=== PATIENT | female | born 2000 | race Caucasian/White ===

== ENCOUNTER 2022-08-13 19:04 | Emergency (ER) | payer OTHER, SELFPAY ==
--- NOTE | 2022-08-13 | ECG_ITS ---
Test Reason : CHEST PAIN Blood Pressure : / mmHG Vent. Rate : 078 BPM Atrial Rate : 078 BPM P-R Int : 154 ms QRS Dur : 082 ms QT Int : 378 ms P-R-T Axes : 059 025 028 degrees QTc Int : 430 ms Normal sinus rhythm Normal ECG When compared with ECG of 16-MAR-2018 21:38, No significant change was found Referred By: Generic ED Physician Electronically Signed By:ROSALINA HORN
--- NOTE | ~2022-08-13 | XR_ITS ---
EXAMINATION: XR CHEST CLINICAL INFORMATION: Chest pain COMPARISON: Chest x-ray 02/10/2020 TECHNIQUE: Frontal view of the chest was obtained. FINDINGS: Cardiac silhouette is normal in size. The lungs are adequately aerated. There is no lobar consolidation. No pleural effusion or pneumothorax. XR/XR chest 1V IMPRESSION: Stable examination demonstrating no acute pulmonary pathology.
[2022-08-13 19:47] LABS: Anion Gap 16 (12-20); Blood Urea Nitrogen 9 mg/dL (9-16); Calcium 9.2 mg/dL (8.4-10.2); Carbon Dioxide 24 mmol/L (22-29); Chloride 104 mmol/L (96-108); Estimated Glomerular Filt Rate > 60; Glucose Random 106 mg/dL (60-115); Sodium 140 mmol/L (135-145)
[2022-08-13 19:55] LABS: Troponin-I High Sensitivity < 3.5 ng/L (<3.5-17.0)
[2022-08-13 20:00] LABS: Basophils Percent Auto 0.3 % (0-2); Eosinophils Absolute Auto 0.4 X10*3/uL (0.0-0.4); Eosinophils Percent Auto 3.4 % (0-4); Hematocrit 42.5 % (37.0-47.0); Hemoglobin 13.5 g/dl (12.0-16.0); Imm Gran Abs Auto 0.04 X10*3/uL (0.00-0.03); Imm Gran Pct Auto 0.3 % (0.0-0.4); Lymphocytes Absolute Auto 3.1 X10*3/uL (1.2-4.9); Lymphocytes Percent Auto 25.3 % (20-40); Mean Corpuscular HGB Conc 31.8 g/dl (31.0-35.0); Mean Corpuscular Hemoglobin 27.5 pg (27.0-33.0); Mean Corpuscular Volume 86.6 fL (80.0-98.0); Mean Platelet Volume 10.9 fL (9.4-12.3); Monocytes Absolute Auto 0.8 X10*3/uL (0.1-1.2); Monocytes Percent Auto 6.2 % (2-11); Neutrophils Absolute Auto 7.9 x10*3/uL (2.0-8.3); Neutrophils Percent Auto 64.5 % (45-73); Platelet Count 297 X10*3/uL (160-400); Red Blood Count 4.91 X10*6/uL (4.20-5.50); Red Cell Distribution Width 13.8 % (11.0-16.0); White Blood Count 12.2 X10*3/uL (4.8-10.8)
[2022-08-13 20:02] LABS: MANUAL DIFF FLAG NO
[2022-08-13 20:53] VITALS: BP 152/86; PULSE 68; RESP 20; TEMP 36; O2SAT 98; BMI 60.5
[2022-08-13] MEDS: Aspirin 81 MG TAB.CHEW 324 MG PO (20:59)
== END 2022-08-14 00:06 | disposition left against medical advice (07) ==
PROVIDERS: Emergency Provider Emergency Medicine
DX: R07.9 Chest pain, unspecified (principal)
CPT/HCPCS: 36415; 71045; 80048; 84484; 85025; 93005; 99283; 99284

== ENCOUNTER 2022-09-23 17:10 | Emergency (ER) | payer OTHER, SELFPAY ==
--- NOTE | ~2022-09-23 | XR_ITS ---
EXAMINATION: XR CHEST CLINICAL INFORMATION: Cough and wheezing COMPARISON: 08/13/2022 TECHNIQUE: Frontal view of the chest was obtained. FINDINGS: No significant abnormality is noted involving the heart, lungs, mediastinum, bony thorax or soft tissues. XR/XR chest 1V IMPRESSION: Unremarkable examination.
[2022-09-23 18:02] VITALS: BP 134/77; PULSE 101; RESP 22; TEMP 36.7; O2SAT 95; BMI 59.4
--- NOTE | 2022-09-23 18:46 | ED_ITS ---
HPI - Asthma General Chief Complaint: Upper Respiratory Symptoms Stated Complaint: sob asthma Time Seen by Provider: 09/23/22 18:39 Source: patient Mode of arrival: ambulatory Limitations: no limitations History of Present Illness HPI Narrative: 22-year-old female with history of morbid obesity, mild intermittent asthma who presents to the ER for evaluation of shortness of breath, productive cough and chest congestion that started 3 days ago. She reports over the weekend she has continued to get worse. She states at night when she lays down she has a hard time breathing, is very wheezy and is starting to bring up white yellow phlegm. She states she has hot flashes and sweats and then gets cold and has chills. She thinks she may have gotten sick at work, she works in fast food. She denies any abdominal pain, nausea, vomiting, diarrhea. No chest pain. Her asthma is usually precipitated by illnesses and exertion. She has no albuterol at home. She has never been hospitalized for asthma. MD complaint: shortness of breath and wheezing Onset (ago): day(s) (3) Severity: worse than usual Context: recent URI and ran out of meds Associated symptoms: productive cough and fever Related Data Current Asthma Therapy: none Previous Rx's Medication Instructions Recorded albuterol sulfate 90 mcg/actuation 1 inh inhalation QID PRN shortness 09/23/22 aerosol inhaler of breath or wheezing #6.7 grams azithromycin 250 mg tablet See Rx Instructions PO .COMPLEX #6 09/23/22 (Zithromax Z-Jonathan) tabs benzonatate 100 mg capsule 100 mg PO TID PRN cough #20 caps 09/23/22 prednisone 20 mg tablet 40 mg PO DAILY #10 tabs 09/23/22 Allergies Allergy/AdvReac Type Severity Reaction Status Date / Time No Known Allergies Allergy Verified 08/13/22 20:57 Review of Systems Review of Systems: Constitutional: + Fever, + Chills ENT/Mouth: No sore throat, + Rhinorrhea, No Swallowing Difficulty Eyes: No Eye Pain, No Swelling, No Redness Cardiovascular: No Chest Pain, No SOB, + Orthopnea, No Edema Respiratory: + Cough, + Sputum, +Wheezing, + dyspnea Gastrointestinal: No Nausea, No Vomiting, No Diarrhea, No abdominal Pain Musculoskeletal: No joint pain, +Myalgias Skin: No Skin Lesions, No rash Neuro: No Weakness, No Dizziness, No Headache Psych: No Anxiety/Panic, No Depression Heme/Lymph: No Bruising, No Lymphadenopathy PMFSH Social History Social History Advance Directives: No Physical Exam Vital Signs: Vital Signs: Last Vital Signs Temp 97.2 F 09/23/22 18:54 Pulse 79 09/23/22 19:19 Resp 18 09/23/22 19:19 BP 153/83 H 09/23/22 18:54 Pulse Ox 95 09/23/22 18:54 O2 Del Method 09/23/22 18:54 BMI result Body Mass Index 59.4 Appearance: Alert. Oriented X3. Diaphoretic, no respiratory distress. Eyes: Pupils equal, round and reactive to light. ENT: Pharynx normal. Neck: Normal inspection. Neck supple. CVS: Tachycardic low in 100s, regular rhythm. Pulses normal. Respiratory: No respiratory distress. Breath sounds with end-expiratory wheezes in the right middle and lower lobes. Abdomen: Obese, Soft and nontender. +BS x4 Skin: Skin warm and dry. Normal skin color. Normal skin turgor. No rashes. Extremities: No lower extremity edema. No calf tenderness. Neuro: Oriented X 3. Steady gait, nonfocal. Course Course Course Narrative: 22-year-old female with history of mild intermittent asthma not on any medicat ions, history of morbid obesity who is presenting to the ER for evaluation of wheezing, shortness of breath, congestion and cough that started 3 days ago. She also has had subjective fever and chills. She arrives diaphoretic but not in any distress. She is mildly tachycardic and tachypneic in triage. She has expiratory wheezes in the right lung. Will treat with the nebulizer treatment. Will get x-ray to rule out pneumonia. Will check COVID swab and flu swab. Most likely viral etiology triggering asthma exacerbation. Reevaluation(s) Reevaluation #1: Chest x-ray is clear. COVID and influenza are negative. Her aeration is improved. Will discharge home with treatment for bronchitis. Stable for discharge. Work note provided per request. Patient agrees with plan, all questions were answered. MDM - Asthma Lab Data Labs: Lab Results 09/23/22 09/23/22 Range/Units 19:01 19:01 COVID-19 (MARLY) Negative (Negative) COVID-19 Clin Com See Note Influenza Type A (JULIO) Negative (Negative) Influenza Type B (JULIO) Negative (Negative) Influenza A & B Note See Note Critical Care Time Critical Care Time Critical Care Time: No Discharge Plan Discharge Clinical Impression: Asthma, Bronchitis Patient Disposition: Home, Self-Care Instructions: Asthma (ED), Acute Bronchitis (ED) Additional Instructions: Your x-ray today was normal, no evidence of pneumonia. You tested negative for COVID-19 and influenza. Take the prescribed steroids as directed. Take the prescribed antibiotic as directed. This will help decrease the inflammation in your lungs. Take the prescribed cough medication as needed. Take paym-goa-wzbzlyu cold and flu medications as needed for symptoms If you develop new or worsening symptoms call 911 or come back to the ER for further evaluation. Prescriptions: New albuterol sulfate 90 mcg/actuation HFA aerosol inhaler 1 inh inhalation QID PRN (Reason: shortness of breath or wheezing) Qty: 6.7 0RF prednisone 20 mg tablet 40 mg PO DAILY Qty: 10 0RF azithromycin [Zithromax Z-Jonathan] 250 mg tablet See Rx Instructions .ROUTE .COMPLEX Qty: 6 0RF Rx Instructions: take 500 mg today (day 1), then 250 mg for 4 days (days 2-5) benzonatate 100 mg capsule 100 mg PO TID PRN (Reason: cough) Qty: 20 0RF Stand Alone Forms: Work/School Release
[2022-09-23 18:54] VITALS: BP 153/83; PULSE 91; RESP 18; TEMP 36.2; O2SAT 95
--- OUTSIDE RECORDS SUMMARY | 2022-09-23 19:14 | XMS_ITS | Continuity of Care Document ---
:2000 Author Organization [facility] Address Unavailable , Care Team Providers Name Role Phone Not on Staff, PCP Primary Care Physician Unavailable Encounter [facility] Date(s): 11/13/21 - 12/13/21 [facility] Attending Physician: Girma Britton Admitting Physician: Girma Britton Referring Physician: Girma Britton Allergies, Adverse Reactions, Alerts No Known Allergies Immunizations Given and Recorded Vaccine Date Status Refusal Reason Measles/Mumps/Rubella Virus Vaccine1 06/15/02 Given Measles/Mumps/Rubella Virus Vaccine2 09/24/01 Given Poliovirus Vaccine, Inactivated3 06/15/02 Given Poliovirus Vaccine, Inactivated4 98 Given Poliovirus Vaccine, Inactivated5 98 Given Poliovirus Vaccine, Inactivated6 98 Given Diphth/Pertussis, Whl Cell/Tet(oldterm)7 06/15/02 Given Diphth/Pertussis, Whl Cell/Tet(oldterm)8 09/21/01 Given Diphth/Pertussis, Whl Cell/Tet(oldterm)9 98 Given Diphth/Pertussis, Whl Cell/Tet(oldterm)10 98 Given Diphth/Pertussis, Whl Cell/Tet(oldterm)11 98 Given Pneumococcal Conjugate (PCV7) (oldterm)12 10/26/01 Given Haemophilus B Conj Vaccine (oldterm)13 10/26/01 Given Haemophilus B Conj Vaccine (oldterm)14 98 Given Haemophilus B Conj Vaccine (oldterm)15 98 Given Haemophilus B Conj Vaccine (oldterm)16 98 Given Varicella Virus Ohdhnay45 09/24/01 Given Hepatitis B Vaccine (old term)18 98 Given Hepatitis B Vaccine (old term)19 98 Given Hepatitis B Vaccine (old term)20 98 Given 1Admin Note: SSW8Uzsdn Note: CZY4Sysji Note: IPV/XBX7Rowjq Note: IPV/DNG5Ijxkf Note: IPV/MGB4Byrqv Note: IPV/XHT9Szwsi Note: PWB4Hqqnf Note: AXL7Kgpcs Note: YYK06Cnmyq Note: NZS74Ubyve Note: YVN84Zvlpu Note: SFV299Nqzde Note: NNL64Sualt Note: OQV26Ytvby Note: YJR29Zyoro Note: FDJ51Ggvfn Note: DDJ06Nwvaq Note: HEP B 19Admin Note: HEP C04Nthhz Note: HEP B Medications Advair Diskus 250 mcg-50 mcg inhalation powder 1, puffs, Inhalation, Every 12 hours, 60, each, 3, 3, 08/18/07 11:59:41, Print JUSTO Number, [id number], Constant Indicator Start Date: 08/18/07 Stop Date: 12/16/07 Status: Orderedaerochamber aerochamber, See Instructions, # 1 each, Use with albuterol as directed., 06/12/09 12:53:36 Start Date: 06/12/09 Status: Orderedalbuterol 90 mcg/inh inhalation aerosol with adapter 2 puffs, Inhalation, Every 4 hours, PRN Wheezing/Shortness of Breath, # 1 each, 0 Refills Start Date: 06/12/09 Stop Date: 07/12/09 Status: Orderedamoxicillin 875 mg oral tablet 1 tablet = 875 mg, By Mouth, 2 times a day, # 8 tablet, 0 Refills Start Date: 06/12/09 Stop Date: 06/16/09 Status: Orderedamoxicillin 875 mg oral tablet 875, mg, 1, tablet, By Mouth, 2 times a day, 14, tablet, 0, 0, 08/19/07 13:14:20, Print JUSTO Number, [id number], Constant Indicator Start Date: 08/19/07 Stop Date: 08/26/07 Status: OrderedFlovent HFA 110 mcg/inh inhalation aerosol with adapter 2 puffs, Inhalation, 2 times a day, # 12 Gm, 0 Refills Start Date: 06/12/09 Stop Date: 07/12/09 Status: OrderedPrilosec 20 mg oral enteric coated capsule 1 capsule = 20 mg, By Mouth, Daily, # 30 capsule, 0 Refills Start Date: 06/12/09 Status: Ordered
--- OUTSIDE RECORDS SUMMARY | 2022-09-23 19:14 | XMS_ITS | Continuity of Care Document ---
:2000 Author Organization [facility] Address Unavailable , Care Team Providers Name Role Phone Not on Staff, PCP Primary Care Physician Unavailable Encounter [facility] Date(s): 08/28/21 - 12/13/21 [facility] Attending Physician: Michelle Bruno MD Allergies, Adverse Reactions, Alerts No Known Allergies [...] Conj Vaccine (oldterm)16 98 Given Varicella Virus Wtsmagy63 09/24/01 Given Hepatitis B Vaccine (old term)18 98 Given Hepatitis B Vaccine (old term)19 98 Given Hepatitis B Vaccine (old term)20 98 Given 1Admin Note: GDA0Zujkc Note: THX0Zhfeu Note: IPV/FDH3Nccdv Note: IPV/YAJ7Odcxv Note: IPV/IJP2Lzklq Note: IPV/IQE6Iywzc Note: LOK3Lzbss Note: HIU5Kebzv Note: PBG31Bkyok Note: LPS15Tqpnk Note: YCU47Itflc Note: YYZ240Uubbb Note: UPT38Yjivc Note: TIB64Miuca Note: PTB61Zulyj Note: JHE71Ioqmq Note: BJK53Qtwnv Note: HEP B 19Admin Note: HEP V44Wlhpu Note: HEP B Medications Advair Diskus 250 [...] 0, 0, 08/19/07 13:14:20, Print JUSTO Number, [id number], Constant Indicator Start Date: 08/19/07 Stop Date: [...]
[2022-09-23 19:19] VITALS: PULSE 79; RESP 18; O2SAT 97
[2022-09-23] MEDS: Albuterol Sulfate 2.5 MG, Albuterol Sulfate (0.083%) 2.5 MG 5 MG INHALE (19:21)
[2022-09-23 19:24] LABS: COVID-19 Test Negative (Negative); IDNOW Serial# 16C4AD1C
[2022-09-23 19:26] LABS: Influenza A Negative (Negative); Influenza B2 Negative (Negative)
[2022-09-23] MEDS: Albuterol Sulfate 90 MCG 8 GM INHALER 2 PUFF INHALE (19:52)
== END 2022-09-23 20:04 | disposition home or self-care (01) ==
PROVIDERS: Physician Assistant; Emergency Provider Internal Medicine
DX: J45.909 Unspecified asthma, uncomplicated (principal); R00.0 Tachycardia, unspecified; Z20.822 Contact with and (suspected) exposure to COVID-19; E66.01 Morbid (severe) obesity due to excess calories; Z68.43 Body mass index [BMI] 50.0-59.9, adult
CPT/HCPCS: 71045; 87502; 87635; 94640; 99283; 99284

== ENCOUNTER 2022-11-16 18:53 | Emergency (ER) | payer OTHER, SELFPAY ==
--- NOTE | ~2022-11-16 | XR_ITS ---
EXAMINATION: CHEST 2 VIEWS CLINICAL INFORMATION: cough/sob . COMPARISON: 09/23/2022. TECHNIQUE: PA and lateral views of the chest obtained. FINDINGS: The lungs are well expanded. No focal infiltrate, effusion, edema, or pneumothorax. Cardiac and mediastinal silhouettes are within normal limits for technique. No acute bony abnormality seen XR/XR chest 2V IMPRESSION: No evidence of acute disease compared to 09/23/2022
[2022-11-16 18:58] VITALS: BP 153/91; PULSE 105; RESP 20; TEMP 36.8; O2SAT 95; BMI 54.0
--- NOTE | 2022-11-16 18:58 | ED_ITS ---
HPI - Asthma General Chief Complaint: Upper Respiratory Symptoms <BEV Boland - Last Filed: 11/16/22 19:01> Stated Complaint: diff breathing, asthmatic <BEV Boland - Last Filed: 11/16/22 19:01> Time Seen by Provider: 11/16/22 19:24 <BEV Boland - Last Filed: 11/16/22 19:01> Source: patient <BEV Archer - Last Filed: 11/16/22 22:01> Mode of arrival: ambulatory <BEV Archer - Last Filed: 11/16/22 22:01> Limitations: no limitations <BEV Archer - Last Filed: 11/16/22 22:> History of Present Illness HPI Narrative: Patient is a 22 year old assigned female at with no reported medical history presenting to the emergency department today with body aches, vomiting, and intermittent shortness of breath. Patient states that over the last 3 days she has felt generally unwell with shortness of breath, body aches, and vomiting. Patient denies any dizziness, lightheadedness, abdominal pain, fever, chills, blurry vision, double vision, loss of vision, chest pain, back pain, night sweats, pain with urination, increased urinary frequency, increased urinary urgency, blood in her urine or stool, syncope or a near syncopal episode, recent trauma or falls, bowel incontinence, bladder incontinence, bowel retention, bladder retention, or any other complaints at this time. <BEV Archer - Last Filed: 11/16/22 22:01> Onset (ago): day(s) (3) <BEV Archer - Last Filed: 11/16/22 22:01> Severity: mild <BEV Archer - Last Filed: 11/16/22 22:01> Related Data Home Medications: Previous Rx's Medication Instructions Recorded albuterol sulfate 90 mcg/actuation 1 inh inhalation QID PRN shortness 09/23/22 aerosol inhaler of breath or wheezing #6.7 grams azithromycin 250 mg tablet See Rx Instructions PO .COMPLEX #6 09/23/22 (Zithromax Z-Jonathan) tabs benzonatate 100 mg capsule 100 mg PO TID PRN cough #20 caps 09/23/22 prednisone 20 mg tablet 40 mg PO DAILY #10 tabs 09/23/22 ondansetron 4 mg disintegrating 4 mg PO Q8H 3 days #9 tabs 11/16/22 tablet <BEV Boland Last Filed: 11/16/22 19:01> Allergies/Adverse Reactions: Allergies Allergy/AdvReac Type Severity Reaction Status Date / Time No Known Allergies Allergy Verified 08/13/22 20:57 <BVE Boland Last Filed: 11/16/22 19:01> Review of Systems Constitutional: Constitutional: Reports no additional constitutional complaints, Reports body ache(s), Denies chills, Denies fever(s) and Denies night sweats <BEV Archer Last Filed: 11/16/22 22:01> Eyes: Eyes: Reports no additional eye complaints, Denies blurry vision, Denies change in vision, Denies diplopia, Denies eye discharge, Denies loss of vision and Denies eye pain <BEV Archer Last Filed: 11/16/22 22:01> ENT: Denies dizziness <BEV Archer Last Filed: 11/16/22 22:01> Cardiovascular: Cardiovascular: Reports no additional cardiovascular complaints, Denies chest pain, Denies lightheadedness, Denies Loss of Consciousness and Reports dyspnea (intermittent) <BEV Archer Last Filed: 11/16/22 22:01> Respiratory: Respiratory: Reports no additional respiratory complaints and Reports dyspnea (intermittent) <BEV Archer Last Filed: 11/16/22 22:01> Gastrointestinal: Gastrointestinal: Reports no additional gastrointestinal complaints, Denies abdominal pain, Denies melena, Denies hematochezia, Denies change in bowel habits, Denies change in stool character, Reports nausea and Reports vomiting <BEV Archer Last Filed: 11/16/22 22:01> Genitourinary: Genitourinary: Denies hematuria, Denies urinary frequency, Denies dysuria, Denies urinary incontinence, Denies urinary hesitancy and Denies urinary urgency <BEV Archer Last Filed: 11/16/22 22:01> Musculoskeletal: Musculoskeletal: Reports no additional musculoskeletal complaints, Denies numbness and Denies tingling <BEV Archer - Last Filed: 11/16/22 22:01> Neurologic: Denies dizziness, Denies loss of vision, Denies numbness and Denies tingling <BEV Archer - Last Filed: 11/16/22 22:01> Psychiatric: Psychiatric: Reports no additional psychiatric complaints <BEV Archer - Last Filed: 11/16/22 22:01> Endocrine: Endocrine: Reports no additional endocrine complaints <BEV Archer - Last Filed: 11/16/22 22:01> Hematologic/Lymphatic: Hematologic/Lymphatic: Reports no additional hematologic/lymphatic complaints <BEV Archer - Last Filed: 11/16/22 22:01> Allergic/Immunologic: Allergic/Immunologic: Reports no additional allergic/immunologic complaints <BEV Archer - Last Filed: 11/16/22 22:01> PMFSH Past Medical History Attestation statement: The following information was validated with the patient. <BEV Archer - Last Filed: 11/16/22 22:01> Source: old records reviewed and nursing notes reviewed <BEV Archer Wa st Filed: 11/16/22 22:01> Social History Social History: Social History Advance Directives: No Advance Directives Information Provided: No <BEV Boland - Last Filed: 11/16/22 19:01> Physical Exam Vital Signs: Vital Signs: Last Vital Signs Temp 98.2 F 11/16/22 18:58 Pulse 105 H 11/16/22 18:58 Resp 20 11/16/22 18:58 BP 153/91 H 11/16/22 18:58 Pulse Ox 95 11/16/22 18:58 O2 Del Method 11/16/22 18:58 BMI result Body Mass Index 54.0 <BEV Boland - Last Filed: 11/16/22 19:01> Vital Signs: Last Vital Signs Temp 98.2 F 11/16/22 18:58 Pulse 105 H 11/16/22 18:58 Resp 20 11/16/22 18:58 BP 153/91 H 11/16/22 18:58 Pulse Ox 95 11/16/22 18:58 O2 Del Method 11/16/22 18:58 BMI result Body Mass Index 54.0 <BEV Archer - Last Filed: 11/16/22 22:01> Const: General: cooperative, no acute distress, alert and awake <BEV Archer - Last Filed: 11/16/22 22:01> Nutritional Appearance: well nourished <BEV Archer - Last Filed: 11/16/22 22:> Orientation/consciousness: patient oriented x3 <BEV Archer - Last Filed: 11/16/22 22:01> Limitations: no limitations <BEV Archer - Last Filed: 11/16/22 22:> HEENT: Head: Yes normal to inspection and Yes atraumatic <BEV Archer - Last Filed: 11/16/22 22:01> Ears: hearing grossly normal bilaterally and external ears normal <BEV Archer - Last Filed: 11/16/22 22:01> General nose exam: Normal external nose present, no nasal discharge noted and no epistaxis <Gloria Lozano PA - Last Filed: 11/16/22 22:01> Face and sinus: Yes normal facial exam, No abrasion and No laceration <BEV Archer - Last Filed: 11/16/22 22:01> Mouth: Normal oral and palatal mucosa present, no drooling and no muffled voice <BEV Archer - Last Filed: 11/16/22 22:01> Eyes: General: appearance normal, both eyes and all related structures <BEV Archer - Last Filed: 11/16/22 22:01> Periorbital: periorbital findings normal <BEV Archer - Last Filed: 11/16/22 22:01> Eyelids: Yes eyelids normal <BEV Archer - Last Filed: 11/16/22 22:01> Conjunctivae: conjunctivae normal <BEV Archer - Last Filed: 11/16/22 22:01> Pupils: Equal, round and reactive pupils present <BEV Archer - Last Filed: 11/16/22 22:01> EOM: EOMs intact bilaterally <Gloria Lozano PA - Last Filed: 11/16/22 22:> Neck: Neck: Yes normal visual inspection, Yes full ROM and Yes no lymphadenopathy <Gloria Lozano PA - Last Filed: 11/16/22 22:01> Chest: Chest palpation & inspection: normal inspection of the chest <Gloria Lozano PA - Last Filed: 11/16/22 22:> Resp: Effort & Inspection: normal respiratory effort and able to speak in complete sentences <Gloria Lozano PA - Last Filed: 11/16/22 22:> Auscultation: clear to auscultation bilaterally <Gloria Lozano PA - Last Filed: 11/16/22 22:> Cardio: Rate: tachycardic <Gloria Lozano PA - Last Filed: 11/16/22 22:> Rhythm: regular rhythm <Gloria Lozano PA - Last Filed: 11/16/22 22:> GI: Inspection: Yes normal to inspection <Gloria Lozano PA - Last Filed: 11/16/22 22:> Palpation (GI): Soft to palpation, not firm, nontender, no guarding and not rigid <Gloria Lozano PA - Last Filed: 11/16/22 22:01> Neuro: General: patient oriented x3 and moves all extremities <Gloria Lozano PA - Last Filed: 11/16/22 22:> Cranial nerves: Yes Equal, round and reactive pupils present <Gloria Dagoberto delgadillo PA - Last Filed: 11/16/22 22:> Cognition (Neuro): normal cognition <Gloria Lozano PA - Last Filed: 11/16/22 22:> Motor exam (neuro): 5/5 motor strength present throughout <Gloria Lozano PA - Last Filed: 11/16/22 22:01> Sensory Exam: Normal double simultaneous stimulation for sensation <Gloria Howechris PA - Last Filed: 11/16/22 22:> Coordination: [id number] test normal <Gloria Howechris PA - Last Filed: 11/16/22 22:01> Extrem: General: Yes normal to inspection, Yes full ROM and Yes capillary refill normal <BEV Archer - Last Filed: 11/16/22 22:01> Psych: Appearance: grossly normal <BEV Archer - Last Filed: 11/16/22 22:01> Mental Status: mental status grossly normal <BEV Archer - Last Filed: 11/16/22 22:01> Affect: normal affect <BEV Archer - Last Filed: 11/16/22 22:01> Attitude: cooperative <BEV Archer - Last Filed: 11/16/22 22:01> Thought process: Normal thought process present <BEV Archer - Last Filed: 11/16/22 22:01> Thought content: Normal thought content present <BEV Archer Last Filed: 11/16/22 22:> Insight: Good insight present (Psych) <BEV Archer - Last Filed: 11/16/22 22:01> Course Course Course Narrative: RME-19PM - 22yoF c PMHx of asthma 2 days of generalized fatigue/malaise/chills/objective fevers with a cough/sputum production with green-colored sputum production along with sob/wheezing with nausea. Denies recent travel or sick contacts. Patient denies any neck pain/stiffness, trouble swallowing, chest pain, abdominal pain, diarrhea, lower extremity edema or calf tenderness or any other symptoms complaints or concerns at this time. Plan: COVID/RSV/flu swab, rapid strep and chest x-ray ordered at this time. <BEV Hanson - Last Filed: 11/16/22 19:01> Medications Administered Discontinued Medications Generic Name Dose Route Start Last Admin Trade Name Freq PRN Reason Stop Dose Admin Ondansetron HCl 4 mg 11/16/22 21:08 11/16/22 21:29 Ondansetron Odt 4 Mg Tab.Rapdis TRANSLINGU 11/16/22 21:09 4 mg ONCE ONE Administration <BEV Boland - Last Filed: 11/16/22 19:01> Medications Administered Discontinued Medications Generic Name Dose Route Start Last Admin Trade Name Freq PRN Reason Stop Dose Admin Ondansetron HCl 4 mg 11/16/22 21:08 11/16/22 21:29 Ondansetron Odt 4 Mg Tab.Rapdis TRANSLINGU 11/16/22 21:09 4 mg ONCE ONE Administration <BEV Archer - Last Filed: 11/16/22 22:01> Medical Decision Making Medical Decision Making [facility] Narrative: Patient is a 22 year old assigned female at with no reported medical history presenting to the emergency department today with intermittent shortness of breath, body aches, and vomiting. Patient's physical exam showed mild tachycardia but was otherwise unremarkable. Patient's influenza/RSV/COVID-19, and strep swabs were negative. Patient's chest x-ray showed no acute process. Patient's clinical presentation is most consistent with an enteritis. I explained my physical exam findings as well as all test results to the patient. I answered all questions asked by the patient. Patient received Zofran which she stated helped her symptoms significantly. I stressed the importance of the patient taking her medication as prescribed. I stressed the importance of the patient following up with her primary care provider. I stressed the importance of the patient returning to the emergency department immediately if her symptoms were to worsen or if she were to develop any dizziness, shortness of breath, difficulty breathing, chest pain, blurry vision, loss of vision, nausea, vomiting, abdominal pain, fever, chills, back pain, or any other complaints. Patient verbalized agreement and understanding with this treatment plan and discharge. <BEV Archer - Last Filed: 11/16/22 22:01> Differential Diagnosis Differential Diagnoses: The differential diagnosis associated with the presentation includes <BEV Archer - Last Filed: 11/16/22 22:01> URI, viral illness, enteritis <BEV Archer - Last Filed: 11/16/22 22:01> Lab Data [facility] Lab Attestation statement: I reviewed the patient's lab results. <BEV Archer - Last Filed: 11/16/22 22:01> Labs: Lab Results 11/16/22 11/16/22 Range/Units 19:43 19:43 Influenza Type A (PCR) NEGATIVE (Negative) Influenza Type B (PCR) NEGATIVE (Negative) RSV RNA Qual (PCR) NEGATIVE (Negative) SARS-CoV-2 RNA (RT-PCR) NEGATIVE (Negative) S. pyogenes GrpA JULIO Negative (Negative) <BEV Boland - Last Filed: 11/16/22 19:01> Lab Results 11/16/22 11/16/22 Range/Units 19:43 19:43 Influenza Type A (PCR) NEGATIVE (Negative) Influenza Type B (PCR) NEGATIVE (Negative) RSV RNA Qual (PCR) NEGATIVE (Negative) SARS-CoV-2 RNA (RT-PCR) NEGATIVE (Negative) S. pyogenes GrpA JULIO Negative (Negative) <BEV Archer - Last Filed: 11/16/22 22:01> Radiology Impression Discussion of test interpretation with radiology: I have reviewed the radiologist's reading. <BEV Archer - Last Filed: 11/16/22 22:01> Radiologist Impression: EXAMINATION: CHEST 2 VIEWS CLINICAL INFORMATION: cough/sob COMPARISON: 09/23/2022. TECHNIQUE: PA and lateral views of the chest obtained.? FINDINGS: The lungs are well expanded. No focal infiltrate, effusion, edema, or pneumothorax. Cardiac and mediastinal silhouettes are within normal limits for technique. No acute bony abnormality seen XR/XR chest 2V IMPRESSION: No evidence of acute disease compared to 09/23/2022 Dictated By: Andrade Ramsey MD Signed By: Electronically signed by Andrade Ramsey MD 11/16/222006 <BEV Archer - Last Filed: 11/16/22 22:01> Discharge Plan Discharge Clinical Impression: Nausea & vomiting <BEV Boland - Last Filed: 11/16/22 19:01> Patient Disposition: Home, Self-Care <BEV Boland - Last Filed: 11/16/22 19:01> Instructions: Acute Nausea and Vomiting (ED) <BEV Boland - Last Filed: 11/16/22 19:01> Additional Instructions: Follow up with your primary care provider. Return to the emergency department immediately if your symptoms worsen or if you develop any dizziness, shortness of breath, difficulty breathing, chest pain, blurry vision, loss of vision, nausea, vomiting, abdominal pain, fever, chills, back pain, or any other complaints. <BEV Boland - Last Filed: 11/16/22 19:01> Prescriptions: New ondansetron 4 mg tablet,disintegrating 4 mg PO Q8H 3 Days Qty: 9 0RF No Action albuterol sulfate 90 mcg/actuation HFA aerosol inhaler 1 inh inhalation QID PRN (Reason: shortness of breath or wheezing) Qty: 6.7 0RF prednisone 20 mg tablet 40 mg PO DAILY Qty: 10 0RF azithromycin [Zithromax Z-Jonathan] 250 mg tablet See Rx Instructions .ROUTE .COMPLEX Qty: 6 0RF Rx Instructions: take 500 mg today (day 1), then 250 mg for 4 days (days 2-5) benzonatate 100 mg capsule 100 mg PO TID PRN (Reason: cough) Qty: 20 0RF <BEV Boland - Last Filed: 11/16/22 19:01> Stand Alone Forms: Work/School Release <BEV Boland - Last Filed: 11/16/22 19:01> Interventions: ED Discharge Assessment Last Done: 11/16/22 21:40 <BEV Boland - Last Filed: 11/16/22 19:01> Discharge Date/Time: 11/16/22 21:40 <BEV Boland - Last Filed: 11/16/22 19:01> Print Language: Nepalese <BEV Boland - Last Filed: 11/16/22 19:01>
[2022-11-16 20:10] LABS: Strep A Nucleic Acid Negative (Negative)
[2022-11-16 20:33] LABS: Influenza A PCR NEGATIVE (Negative); Influenza B PCR NEGATIVE (Negative); Resp Syncy Virus RNA Qual PCR NEGATIVE (Negative); SARS COV2 PCR INHOUSE NEGATIVE (Negative)
[2022-11-16] MEDS: Ondansetron ODT 4 MG TAB.RAPDIS TRANSLINGU (21:29)
== END 2022-11-16 21:40 | disposition home or self-care (01) ==
PROVIDERS: Physician Assistant Medical; Emergency Provider Emergency Medicine
DX: R11.2 Nausea with vomiting, unspecified (principal); Z20.822 Contact with and (suspected) exposure to COVID-19; R05.9 Cough, unspecified
CPT/HCPCS: 0241U; 36415; 71046; 87651; 99282; 99283

== ENCOUNTER 2024-10-21 15:36 | Emergency (ER) | payer OTHER, SELFPAY ==
--- NOTE | ~2024-10-21 | US_ITS ---
EXAMINATION: US OBSTETRICAL ULTRASOUND CLINICAL INFORMATION: with vaginal bleeding COMPARISON: None available. LMP: 08/26/2024. Gestational age by maternal dates is 8 weeks 0 days. Estimated date of delivery by maternal dates is 06/02/2025. TECHNIQUE: Transabdominal pelvic ultrasound was performed. FINDINGS: There is a single intrauterine gestational sac with visible yolk sac, embryo/fetus, and cardiac activity. There is no significant subchorionic hemorrhage or hematoma. HR: 155 beats per minute. CRL (crown rump length): 1.31 cm (7 weeks 4 days +/- 4 days). EBONIE (estimated date of delivery): 06/05/2025 +/- 4 days. MATERNAL ADNEXA: The right maternal ovary measures 4.5 x 2.0 x 2.0 cm. The left maternal ovary measures 4.0 x 2.4 x 2.3 cm. There is no significant maternal adnexal mass. There is no maternal pelvic ascites. US/US OB <= 14 weeks fetus IMPRESSION: 1. Single intrauterine gestation with ultrasound gestational age of 7 weeks 4 days +/- 4 days. 2. Estimated date of delivery is 06/05/2025 +/- 4 days. 3. No maternal adnexal mass or pelvic ascites. Electronically signed by: Jose L Darden MD 10/21/2024 07:33 PM [facility]
[2024-10-21 16:08] VITALS: BP 135/66; PULSE 81; RESP 20; TEMP 36.6; O2SAT 100; BMI 52.4
--- NOTE | 2024-10-21 16:14 | ED.GENADULT ---
HPI - General Adult General Chief complaint: Vaginal Bleeding Stated complaint: 7 weeks preg/bleeding Time Seen by Provider: 10/21/24 19:38 Source: patient Mode of arrival: ambulatory Limitations: no limitations History of Present Illness ED Provider: kellen HAYES narrative: Patient is 1 with history of 2 miscarriages at the age 6-8 will O-positive comes here for spotting for last 2 days today got dark blood and lower abdominal cramps patient denies any urinary complaint no fever no chills Related Data Previous Rx's ?Medication ?Instructions ?Recorded albuterol sulfate 90 mcg/actuation 1 inh inhalation QID PRN shortness 09/23/22 aerosol inhaler of breath or wheezing #6.7 grams azithromycin 250 mg tablet See Rx Instructions PO .COMPLEX #6 09/23/22 (Zithromax Z-Jonathan) tabs benzonatate 100 mg capsule 100 mg PO TID PRN cough #20 caps 09/23/22 prednisone 20 mg tablet 40 mg (2 x 20 mg) PO DAILY #10 tabs 09/23/22 ondansetron 4 mg disintegrating 4 mg PO Q8H 3 days #9 tabs 11/16/22 tablet nitrofurantoin 100 mg PO Q12H 7 days #14 caps 10/21/24 monohydrate/macrocrystals 100 mg capsule (Macrobid) Allergies Allergy/AdvReac Type Severity Reaction Status Date / Time No Known Allergies Allergy Verified 10/21/24 16:11 Review of Systems Review of Systems: Yes all other systems are reviewed and are negative PMFSH Social History Social History Advance Directives: No Advance Directives Information Provided: No Do you have a plan to hurt others: No Plan Physical Exam ED Vital Signs: Vital Signs - 24 hr 10/21/24 16:08 10/21/24 19:43 10/21/24 19:58 Temperature 97.8 F 98.3 F 98.3 F Pulse Rate 81 64 64 Respiratory Rate 20 20 20 Blood Pressure 135/66 158/81 H 158/81 H Pulse Oximetry 100 99 99 Oxygen Delivery Method Room Air Room Air Room Air BMI result Body Mass Index 52.4 Appearance: Alert. Oriented X3. No acute distress. Eyes: No pallor or icterus ENT: Pharynx normal. Oral Mucosa moist Neck: Normal inspection. Neck supple. CVS: Normal heart rate and rhythm. Pulses normal. Respiratory: No respiratory distress. Equal air entry bilateral, no wheezing/rales/rhonchi Abdomen: Soft an mild suprapubic discomfort. Bowel sounds are present, no mass palpable, no CVA tenderness Skin: Skin warm and dry. Normal skin color. Normal skin turgor. Extremities: No lower extremity edema. No calf tenderness Neuro: Oriented X 3. Course Course Course Narrative: RME: 24-year-old female 7 weeks presents to ED for vaginal bleeding described as bright red since yesterday. Patient denies any trauma. Patient states mild abdominal cramping last ultrasound ordered. Medications Administered Discontinued Medications Generic Name Dose Route Start Last Admin Trade Name Freq PRN Reason Stop Dose Admin Nitrofurantoin Macrocrystals 100 mg 10/21/24 19:50 10/21/24 19:56 Nitrofurantoin Monohyd/M-Cryst 100 Mg Capsule PO 10/21/24 19:51 100 mg ONCE ONE Administration Medical Decision Making Medical Decision Making [facility] Narrative: Patient will threatened no active bleeding at this time IUP on ultrasound 7 weeks 4 days with heart tone 155 beats per minute O-positive does have UTI denies any urinary symptoms but will prescribe Macrobid advised to follow with director data analytics Lab Data [facility] Lab Attestation statement: I reviewed the patient's lab results. 10/21/24 16:41 10/21/24 16:41 Labs: Lab Results 10/21/24 10/21/24 Range/Units 16:40 16:41 WBC 14.6 H (4.8-10.8) X10*3/uL RBC 4.56 (4.20-5.50) X10*6/uL Hgb 13.4 (12.0-16.0) g/dl Hct 39.5 (37.0-47.0) % MCV 86.6 (80.0-98.0) fL MCH 29.4 (27.0-33.0) pg MCHC 33.9 (31.0-35.0) g/dl RDW 13.8 (11.0-16.0) % Plt Count 253 (160-400) X10*3/uL MPV 10.8 (9.4-12.3) fL Immature Gran % (Auto) 0.5 H (0.0-0.4) % Neut % (Auto) 75.2 H (45-73) % Lymph % (Auto) 15.1 L (20-40) % Bulloch % (Auto) 8.2 (2-11) % Eos % (Auto) 0.8 (0-4) % Baso % (Auto) 0.2 (0-2) % Lymph # (Auto) 2.2 (1.2-4.9) X10*3/uL Bull[place] # (Auto) 1.2 (0.1-1.2) X10*3/uL Eos # (Auto) 0.1 (0.0-0.4) X10*3/uL Baso # (Auto) 0.0 (0.0-0.2) X10*3/uL Abs Immat Gran (auto) 0.07 H (0.00-0.03) X10*3/uL Absolute Neuts (auto) 11.0 H (2.0-8.3) x10*3/uL Absolute Nucleated RBC 0.000 (0.0-0.012) X10*3/uL Nucleated RBC % (auto) 0.0 (0.0-0.2) /100WBC PT 14.0 H (10.9-12.4) SEC INR 1.2 H (0.9-1.1) APTT 33.4 (26.0-36.8) SEC Sodium 136 (135-145) mmol/L Potassium 3.7 (3.3-5.1) mmol/L Chloride 105 (96-108) mmol/L Carbon Dioxide 24 (22-29) mmol/L Anion Gap 11 L (12-20) BUN 8 L (9-16) mg/dL Creatinine 0.73 (0.5-1.4) mg/dL Estim Creat Clear Calc 180.1 Estimated GFR > 60 Random Glucose 78 (60-115) mg/dL Calcium 9.9 D (8.4-10.2) mg/dL Total Bilirubin 0.4 (0.0-1.0) mg/dL AST 29 (5-31) U/L ALT 25 (0-31) U/L Alkaline Phosphatase 80 (39-117) U/L Total Protein 8.0 (6.5-8.0) g/dL Albumin 4.0 (3.5-5.0) g/dL Beta HCG, Quant 18408 mIU/mL Urine Color Dark Yellow Urine Appearance Cloudy Urine pH 5.5 (5.0-9.0) Ur Specific [place] >= 1.030 H (1.005-1.025) Urine Protein 30 (1+) H (Neg-Trace) mg/dL Urine Glucose (UA) Negative (Negative) mg/dL Urine Ketones Trace (Negative) mg/dL Urine Blood Large (3+) H (Negative) Urine Nitrite Negative (Negative) Ur Leukocyte Esterase Moderate (2+) H (Negative) Urine RBC >20 H (0-2) /HPF Urine WBC >50 H (0-5) /HPF Ur Squamous Epith Cells 11-20 (0-2) /HPF Urine Bacteria 2+ (None Seen) Hyaline Casts 0-2 (0-2) /LPF Blood Type O Positive Independent Interpretation I performed an independent interpretation of an: Ultrasound Interpretation: [place] [address] Ultrasound Report Signed Patient: Kayla Sin MR#: [id number] : 2000 Acct:[id number] Age/Sex: 24 / F ADM Date: 10/21/24 Loc: .ED Attending Dr: Ordering Physician: Thaddeus Roa Date of Service: 10/21/24 Procedure(s): US OB <= 14 weeks fetus Accession Number(s): [id number] cc: Thaddeus Roa; Physician,Unknown ~ EXAMINATION: US OBSTETRICAL ULTRASOUND CLINICAL INFORMATION: with vaginal bleeding COMPARISON: None available. LMP: 08/26/2024. Gestational age by maternal dates is 8 weeks 0 days. Estimated date of delivery by maternal dates is 06/02/2025. TECHNIQUE: Transabdominal pelvic ultrasound was performed. FINDINGS: There is a single intrauterine gestational sac with visible yolk sac, embryo/fetus, and cardiac activity. There is no significant subchorionic hemorrhage or hematoma. HR: 155 beats per minute. CRL (crown rump length): 1.31 cm (7 weeks 4 days +/- 4 days). EBONIE (estimated date of delivery): 06/05/2025 +/- 4 days. MATERNAL ADNEXA: The right maternal ovary measures 4.5 x 2.0 x 2.0 cm. The left maternal ovary measures 4.0 x 2.4 x 2.3 cm. There is no significant maternal adnexal mass. There is no maternal pelvic ascites. US/US OB <= 14 weeks fetus IMPRESSION: 1. Single intrauterine gestation with ultrasound gestational age of 7 weeks 4 days +/- 4 days. 2. Estimated date of delivery is 06/05/2025 +/- 4 days. 3. No maternal adnexal mass or pelvic ascites. Electronically signed by: Jose L Darden MD 10/21/2024 07:33 PM [facility] Radiology Impression Discussion of test interpretation with radiology: I have reviewed the radiologist's reading. Discharge Plan Discharge Clinical Impression: Threatened , UTI (urinary tract infection) Patient Disposition: Home, Self-Care Instructions: Threatened Miscarriage (ED), Urinary Tract Infection in (ED) Additional Instructions: Drink plenty of fluids Take antibiotic as prescribed Follow up with Ob G if bleeding continues Report to the ER if bleeding gets worse Prescriptions: New nitrofurantoin monohyd/m-cryst [Macrobid] 100 mg capsule 100 mg PO Q12H 7 Days Qty: 14 0RF Rx Instructions: must administer with a meal/food No Action albuterol sulfate 90 mcg/actuation HFA aerosol inhaler 1 inh inhalation QID PRN (Reason: shortness of breath or wheezing) Qty: 6.7 0RF prednisone 20 mg tablet 40 mg PO DAILY Qty: 10 0RF azithromycin [Zithromax Z-Jonathan] 250 mg tablet See Rx Instructions .ROUTE .COMPLEX Qty: 6 0RF Rx Instructions: take 500 mg today (day 1), then 250 mg for 4 days (days 2-5) benzonatate 100 mg capsule 100 mg PO TID PRN (Reason: cough) Qty: 20 0RF ondansetron 4 mg tablet,disintegrating 4 mg PO Q8H 3 Days Qty: 9 0RF Interventions: ED Discharge Assessment Last Done: 10/21/24 19:58 Discharge Date/Time: 10/21/24 19:58 Print Language: Serbian
[2024-10-21 16:47] LABS: MANUAL DIFF FLAG NO
[2024-10-21 16:53] LABS: Basophils Percent Auto 0.2 % (0-2); Eosinophils Absolute Auto 0.1 X10*3/uL (0.0-0.4); Eosinophils Percent Auto 0.8 % (0-4); Hematocrit 39.5 % (37.0-47.0); Hemoglobin 13.4 g/dl (12.0-16.0); Imm Gran Abs Auto 0.07 X10*3/uL (0.00-0.03); Imm Gran Pct Auto 0.5 % (0.0-0.4); Lymphocytes Absolute Auto 2.2 X10*3/uL (1.2-4.9); Lymphocytes Percent Auto 15.1 % (20-40); Mean Corpuscular HGB Conc 33.9 g/dl (31.0-35.0); Mean Corpuscular Hemoglobin 29.4 pg (27.0-33.0); Mean Corpuscular Volume 86.6 fL (80.0-98.0); Mean Platelet Volume 10.8 fL (9.4-12.3); Monocytes Absolute Auto 1.2 X10*3/uL (0.1-1.2); Monocytes Percent Auto 8.2 % (2-11); Neutrophils Percent Auto 75.2 % (45-73); Platelet Count 253 X10*3/uL (160-400); Red Blood Count 4.56 X10*6/uL (4.20-5.50); Red Cell Distribution Width 13.8 % (11.0-16.0); White Blood Count 14.6 X10*3/uL (4.8-10.8)
[2024-10-21 16:57] LABS: Appearance Urine Cloudy; Color Urine Dark Yellow; Glucose Urine UA Negative (Negative); Leukocyte Esterase Urine Moderate (2+) (Negative); Nitrite Urine Negative (Negative); PH 5.5 (5.0-9.0); Specific Gravity - Urine >= 1.030 (1.005-1.025); UMIC TRIGGER UACC YES; Urine Blood Large (3+) (Negative); Urine Ketones Trace mg/dL (Negative); Urine Protein 30 (1+) mg/dL (Neg-Trace)
[2024-10-21 17:02] LABS: Bacteria Urine 2+ (None Seen); Hyaline Casts Urine 0-2 /LPF (0-2); INTERNATIONAL NORM RATIO 1.2 (0.9-1.1); RBC Urine >20 /HPF (0-2); UACC Culture Trigger YES; WBC Urine >50 /HPF (0-5)
[2024-10-21 17:05] LABS: Partial Thromboplastin Time 33.4 SEC (26.0-36.8)
[2024-10-21 17:19] LABS: Alanine Aminotransferase 25 U/L (0-31); Alkaline Phosphatase 80 U/L (39-117); Anion Gap 11 (12-20); Aspartate Amino Transferase 29 U/L (5-31); Bilirubin Total 0.4 mg/dL (0.0-1.0); Blood Urea Nitrogen 8 mg/dL (9-16); Calcium 9.9 mg/dL (8.4-10.2); Carbon Dioxide 24 mmol/L (22-29); Chloride 105 mmol/L (96-108); Creatinine Clr Calc Pharmacy 180.1; Estimated Glomerular Filt Rate > 60; Glucose Random 78 mg/dL (60-115); Potassium 3.7 mmol/L (3.3-5.1); Sodium 136 mmol/L (135-145)
[2024-10-21 17:37] LABS: HCG Quantitative 61671 mIU/mL
[2024-10-21 19:43] VITALS: BP 158/81; PULSE 64; RESP 20; TEMP 36.8; O2SAT 99
[2024-10-21] MEDS: Nitrofurantoin Monohyd/M-Cryst 100 MG CAPSULE PO (19:56)
[2024-10-21 19:58] VITALS: BP 158/81; PULSE 64; RESP 20; TEMP 36.8; O2SAT 99
== END 2024-10-21 19:58 | disposition home or self-care (01) ==
PROVIDERS: Physician Assistant; Emergency Provider Internal Medicine
DX: O20.0 Threatened abortion (principal); N39.0 Urinary tract infection, site not specified; Z79.899 Other long term (current) drug therapy; Z3A.01 Less than 8 weeks gestation of pregnancy
CPT/HCPCS: 36415; 76801; 80053; 81001; 84702; 85025; 85610; 85730; 86900; 86901; 87086; 87147; 99283; 99284